=== PATIENT | male | born 1950 | race Caucasian/White ===

== ENCOUNTER 2023-07-14 09:00 | Day surgery (SDC) | payer MEDICARE ==
[2023-07-14] MEDS: LACTATED RINGERS 1,000 ML IV SCH (10:07)
[2023-07-14 10:29] VITALS: RESP 18; TEMP 96.9
[2023-07-14] MEDS ORDERED: PROPOFOL 10 MG/ML 20 ML VIAL IV ONE (10:59)
--- NOTE | 2023-07-14 11:15 | P.PCN ---
Date of Procedure: 07/14/23 Procedure(s) Performed: BRIEF HISTORY: Patient is a 73-year-old pleasant white male scheduled for an elective colonoscopy as a part of screening for colon cancer. PROCEDURE PERFORMED: Colonoscopy. PREOPERATIVE DIAGNOSIS: Screening for colon cancer. IV sedation per Anesthesia. PROCEDURE: After informed consent was obtained, the patient, was brought into the endoscopy unit. IV sedation was administered by Anesthesia under continuous monitoring. Digital rectal examination was normal. Initially the Olympus CF-160 flexible video colonoscope was then inserted in the rectum, gradually advanced into the cecum without any difficulty. Careful examination was performed as the scope was gradually being withdrawn. Ileocecal valve and the appendiceal orifice were visualized and appeared normal. Prep was excellent. Mucosa of the cecum, ascending colon, transverse colon, descending colon, sigmoid colon, and rectum appeared normal. Retroflexion was performed in the rectum and no lesions were seen. The patient tolerated the procedure well. IMPRESSION: Normal-appearing colon from rectum to cecum with no evidence of colorectal neoplasia. RECOMMENDATIONS: Findings of this examination were discussed with the patient as well as his family. He was advised to have a repeat screening colonoscopy in 10 years..
[2023-07-14 12:40] VITALS: BP 122/73; PULSE 77
== END 2023-07-14 12:11 | disposition home or self-care (01) ==
LOC: ORWHC2ENDO 09:00
PROVIDERS: ATTEND Internal Medicine Gastroenterology
DX: Z12.11 Encounter for screening for malignant neoplasm of colon (principal); I10 Essential (primary) hypertension; E78.5 Hyperlipidemia, unspecified; E07.9 Disorder of thyroid, unspecified; M19.90 Unspecified osteoarthritis, unspecified site; Z79.890 Hormone replacement therapy; Z87.891 Personal history of nicotine dependence; Z79.899 Other long term (current) drug therapy
CPT/HCPCS: G0121; J2704; 45378

== ENCOUNTER → 2024-03-22 | Outpatient (CLI) | payer MEDICARE ==
--- NOTE | 2024-03-22 12:31 | XR ---
EXAMINATION TYPE: XR Hip Bilateral Complete DATE OF EXAM: 03/22/2024 COMPARISON: NONE CLINICAL INDICATION: Male, 74 years old with history of M25.551 RIGHT HIP PAIN; TECHNIQUE: 2 views submitted FINDINGS: Mild bilateral narrowing of the hip joint. Mild hypertrophic change of the acetabulum. Mild SI joint arthropathy and degenerative change lower lumbar spine. Mineralization normal. Metallic clips in the region of the prostate. Vascular calcifications and soft tissue calcifications noted. No destructive lesions. IMPRESSION: 1. Mild bilateral hip arthropathy. 2. Mild bilateral SI joint arthropathy. [facility], , 03/22/2024 12:28 PM
--- NOTE | 2024-03-22 12:33 | XR ---
EXAMINATION TYPE: XR lumbar spine 2 or 3V DATE OF EXAM: 03/22/2024 12:24 PM COMPARISON: None. CLINICAL INDICATION: Male, 74 years old with history of M25.551 RIGHT HIP PAIN; TECHNIQUE: XR lumbar spine 2 or 3V views are submitted. FINDINGS: Alignment is anatomic. The pedicles are intact. The transverse processes are intact. Generalized de mineralization. There is grade 1\2 anterolisthesis L5-S1. Cannot exclude a spondylolysis. Severe dege nerative disc disease L2-3, L3-4 and L5-S1. Severe changes at the thoracolumbar junction. Moderate de generative disc disease at remaining levels. Multilevel facet arthropathy most marked at L5-S1. Vascu lar calcifications noted. IMPRESSION: 1. Moderate to severe multilevel degenerative disc disease with grade 1\2 anterolisthesis L5 on S1. S uspect bilateral spondylolysis. 2. Multilevel facet arthropathy and foraminal encroachment suspected. [facility], , 03/22/2024 12:31 PM
== END | disposition home or self-care (01) ==
LOC: RADXRMAIN 11:54
PROVIDERS: ATTEND Family Medicine
DX: M25.551 Pain in right hip (principal); M25.552 Pain in left hip; M51.369 Other intervertebral disc degeneration, lumbar region without mention of lumbar back pain or lower extremity pain; M51.379 Other intervertebral disc degeneration, lumbosacral region without mention of lumbar back pain or lower extremity pain
CPT/HCPCS: 72100; 73521

== ENCOUNTER → 2024-03-22 | Outpatient (CLI) | payer MEDICARE ==
--- NOTE | 2024-03-22 12:59 | US ---
EXAMINATION TYPE: US kidneys/renal and bladder DATE OF EXAM: 03/22/2024 COMPARISON: NONE CLINICAL INDICATION: Male, 74 years old with history of N28.1 CYST OF KIDNEY, ACQUIRED; Hx Prostate c ancer and HTN TECHNIQUE: Grayscale imaging of the bilateral kidneys and urinary bladder: FINDINGS: EXAM MEASUREMENTS: Right Kidney: 10.7 x 5.0 x 5.0 cm Left Kidney: 11.0 x 5.5 x 4.8 cm Post Void Residual Volume: NA mL Right Kidney: Single anechoic area seen mid/medial Left Kidney: Multiple anechoic areas seen throughout kidney, largest is superolateral = 5.8 x 5.4 x 5 .6 cm Bladder: wnl Bilateral Jets seen: Yes Normal Post Void Residual: NA There is no evidence for hydronephrosis at this point in time. No nephrolithiasis is seen. The urina ry bladder is anechoic. IMPRESSION: Renal cystic changes [facility], , 03/22/2024 12:57 PM
== END | disposition home or self-care (01) ==
LOC: RADUSWWP 12:22
PROVIDERS: ATTEND Urology
DX: N28.1 Cyst of kidney, acquired (principal); I10 Essential (primary) hypertension; Z85.46 Personal history of malignant neoplasm of prostate
CPT/HCPCS: 76770